=== PATIENT | female | born 1945 | race Caucasian/White ===

== ENCOUNTER 2023-04-20 17:58 | Inpatient (IN) | payer MEDICARE, OTHER ==
[~2023-04-20] VITALS: Ht 160 cm; Wt 68.9 kg
[2023-04-20 18:21] LABS: MEAN CORPUSCULAR HEMOGLOBIN 28.8 uug (24.7-32.8); MEAN CORPUSCULAR VOLUME 87.7 fL (75.5-95.3); PLATELET COUNT (AUTO) 269 K/uL (179-408)
[2023-04-20 18:36] LABS: CARBON DIOXIDE 27 mmol/L (21-32); CHLORIDE 98 mmol/L (98-107); CREATININE 1.2 mg/dL (0.6-1.3); GLUCOSE 152 mg/dL (74-106); POTASSIUM 4.2 mmol/L (3.5-5.1); UREA NITROGEN, BLOOD 19 mg/dL (7-18)
[2023-04-20] MEDS ORDERED: OSCAL PO (18:40)
[2023-04-20] MEDS ORDERED: VITAMIN D3 PO (18:40)
[2023-04-20] MEDS ORDERED: PANT40TA49 PO (18:40)
[2023-04-20] MEDS ORDERED: AMLO-212 PO (18:40)
[2023-04-20] MEDS ORDERED: ESCI10TA PO (18:40)
[2023-04-20] MEDS ORDERED: HYDR-894 PO (18:40)
[2023-04-20] MEDS ORDERED: [UNRECOGNIZED DRUG - OTHER] PR (18:40)
[2023-04-20] MEDS ORDERED: IPRA3AMP23 IH (18:40)
[2023-04-20] MEDS ORDERED: LAMO100T17 PO (18:40)
[2023-04-20] MEDS ORDERED: TRIH2TAB5 PO (18:40)
[2023-04-20] MEDS ORDERED: HALO0.5T6 PO (18:40)
[2023-04-20] MEDS ORDERED: [UNRECOGNIZED DRUG - OTHER] PO (18:40)
[2023-04-20] MEDS ORDERED: GLYC5.6S RC (18:40)
[2023-04-20] MEDS ORDERED: ACET650S13 RC (18:40)
[2023-04-20 18:41] LABS: ALANINE AMINOTRANSFERASE 26 U/L (14-59); ALKALINE PHOSPHATASE 88 U/L (50-136); ASPARTATE AMINOTRANSFERASE 45 U/L (15-37); BILIRUBIN,DIRECT 0.2 mg/dL (0.0-0.2); BILIRUBIN,TOTAL 0.4 mg/dL (0.2-1.0); TOTAL PROTEIN, SERUM 7.1 g/dL (6.4-8.2)
--- NOTE | 2023-04-20 18:46 | NUR ---
Pt seen by for bedside eval. Sent UA to lab. Pt on soft restraints since 1839. Safety measures in place. Will continue to monitor.
[2023-04-20 18:50] LABS: *BILIRUBIN,URIN NEGATIVE (NEGATIVE); *BLOOD, URINE NEGATIVE (NEGATIVE); *CLARITY,URINE CLEAR (CLEAR); *COLOR,URINE YELLOW (YELLOW); *KETONES,URINE NEGATIVE (NEGATIVE); *UROBILINOGEN,URINE 0.2 E.U./dl (NORMAL); LEUKOCYTE ESTERASE ,URINE NEGATIVE (NEGATIVE); NITRITE, URINE NEGATIVE (NEGATIVE); PH,URINE 5.5 (5.0-8.0); UGLUCOSE NEGATIVE (NEGATIVE)
[2023-04-20 18:57] LABS: ACETAMINOPHEN < 10.0 ug/mL (10-30)
--- NOTE | 2023-04-20 19:05 | NUR ---
REPORT RECEIVED FROM AMADA CRUZ.
--- NOTE | 2023-04-20 19:05 | NUR ---
REPORT RECEIVED FROM AMADA CRUZ.
[2023-04-20 19:07] LABS: *AMPHETAMINE, URINE NEGATIVE (NEGATIVE); *CANNABINOID, URINE NEGATIVE (NEGATIVE); *COCCAINE, URINE NEGATIVE (NEGATIVE); *PHENCYCLIDINE SCREEN,URINE NEGATIVE (NEGATIVE)
--- NOTE | 2023-04-20 19:10 | NUR ---
PT IS A,A, AGITATED / CONFUSED. PT KEEPS YELLING OUT IN GABONESE.
[2023-04-20] MEDS ORDERED: ALBUTEROL SULFATE 2.5 MG/ 0.5 ML NEBU ONE (19:26)
[2023-04-20] MEDS ORDERED: IPRATROPIUM BROMIDE 0.5 MG/2.5 ML NEBU ONE (19:26)
--- NOTE | 2023-04-20 19:30 | NUR ---
PT GIVEN JUICE TO DRINK.
--- NOTE | 2023-04-20 19:45 | NUR ---
PT SPEAKING CHANI. SHUKRI VALIDATION SOFTWARE FACILITATOR #[id number], SPOKE WITH PT . VALIDATION SOFTWARE FACILITATOR SAID, PT COULD NOT ANSWER QUESTIONS APROPRIATELY AND THAT SHE THOUGHT SHE WAS AT HOME. PT MEDICALLY CLEARED.RONIT, ON [facility] CONTACTED.
--- NOTE | 2023-04-20 19:53 | NUR ---
Patient medically cleared by DR Crowder. Called Roxane from [facility] who will come eval patient.
--- NOTE | 2023-04-20 20:30 | NUR ---
PINKY AT BEDSIDE FOR PSYCH EVAL.
--- NOTE | 2023-04-20 21:15 | NUR ---
REPORT GIVEN TO WILL RN IN MHU.
[2023-04-20] MEDS ORDERED: OLANZAPINE 5 MG TABLET ONE (21:42)
[2023-04-20] MEDS ORDERED: OLANZAPINE 5 MG TABLET PO SCH (21:45)
--- NOTE | 2023-04-20 22:15 | NUR ---
PT STABLE WITH NAD OBSERVED.Pt. admitted to 139[facility] , under care of Dr. BRITO Belongs List completed. PT TAKEN TO [facility] VIA BRIANNA.
--- NOTE | 2023-04-20 22:30 | NUR ---
Admitted patient from SNF due to increased agitation, confuse, disorganize & disoriented, pacing & running in the hallways, wandering to other patient rooms, talking to self, yelling and screaming, Patient assisted to the toilet, skin clean, except for left leg multiple bruises, and on left inner upper arm. Patient speak Bulgarian, but too confuse to make valuable conversation according to YARN SALVAGER, ER staff uses voice diesel retrofit designer, assisted to bed, easily get agitated when giving care, cont to monitor.
[2023-04-20] MEDS ORDERED: MAG HYDROX/AL HYDROX/SIMETH 30 ML LIQUID UDC PO PRN (23:15)
[2023-04-20] MEDS ORDERED: BLOOD SUGAR DIAGNOSTIC 1 EACH STRIP VI ONE (23:15)
[2023-04-20] MEDS ORDERED: ACETAMINOPHEN 325 MG TABLET PO PRN (23:15)
[2023-04-20] MEDS ORDERED: MAGNESIUM HYDROXIDE 30 ML LIQUID UDC PO PRN (23:15)
--- NOTE | 2023-04-20 23:32 | NUR ---
refused blood sugar check, gets agitated.
[2023-04-20 23:58] VITALS: BP 126/68; TEMP 98.1; O2SAT 95
[2023-04-21 08:00] VITALS: BP 130/41; TEMP 98.2; O2SAT 94
[2023-04-21] MEDS: LAMOTRIGINE 100 MG TABLET PO SCH ×3 (11:18→18:18)
[2023-04-21] MEDS ORDERED: CALC-1026 PO (11:29)
[2023-04-21] MEDS ORDERED: ACETAMINOPHEN 650 MG SUPP.RECT RC PRN (12:30)
[2023-04-21] MEDS: hydrALAZINE HCL 25 MG TABLET PO SCH ×2 (13:05→18:18)
[2023-04-21 16:00] VITALS: BP 131/48; TEMP 97.5; O2SAT 95
[2023-04-21 20:00] VITALS: BP 127/63; TEMP 97.5; O2SAT 94
[2023-04-21] MEDS: OLANZAPINE 5 MG TABLET PO SCH (20:48)
[2023-04-21] MEDS: TRIHEXYPHENIDYL HCL 2 MG TABLET PO SCH (20:49)
--- NOTE | 2023-04-22 06:21 | NUR ---
remain confused and disoriented but cooperative with meds and care. assisted with adl's. kept clean and dry. continue plan of care.
--- NOTE | 2023-04-22 06:21 | NUR ---
slept 7.45 hrs through the night.
[2023-04-22] MEDS: PANTOPRAZOLE SODIUM 40 MG TABLET.DR PO SCH (06:31)
[2023-04-22 07:05] LABS: HEMATOCRIT 38.6 % (31.2-41.9); MEAN CORPUSCULAR HEMOGLOBIN 29.6 uug (24.7-32.8); MEAN CORPUSCULAR VOLUME 88.5 fL (75.5-95.3); PLATELET COUNT (AUTO) 252 K/uL (179-408)
[2023-04-22 07:39] LABS: BILIRUBIN,TOTAL 0.5 mg/dL (0.2-1.0); CREATININE 1.1 mg/dL (0.6-1.3); PHOSPHOROUS 4.3 mg/dL (2.5-4.9); POTASSIUM 4.3 mmol/L (3.5-5.1); TOTAL PROTEIN, SERUM 6.6 g/dL (6.4-8.2)
[2023-04-22] MEDS: AMLODIPINE 5 MG TABLET PO SCH (09:31)
[2023-04-22] MEDS: LAMOTRIGINE 100 MG TABLET PO SCH ×3 (09:31→17:07)
[2023-04-22] MEDS: hydrALAZINE HCL 25 MG TABLET PO SCH ×3 (09:32→17:07)
[2023-04-22] MEDS: CALCIUM CARBONATE 500 MG TABLET PO SCH (09:32)
[2023-04-22] MEDS: CHOLECALCIFEROL 1,000 UNIT TABLET PO SCH (09:33)
--- NOTE | 2023-04-22 11:21 | NUR ---
Nursing- Was taken to am shower , incontinent of loose stools in bed ,, ambulated with min assist, confused, disoriented follows simple commad , safety emphasized
[2023-04-22] MEDS: OLANZAPINE 2.5 MG TABLET PO SCH (13:31)
[2023-04-22 16:19] VITALS: BP 145/52; TEMP 98; O2SAT 96
--- NOTE | 2023-04-22 16:25 | NUR ---
ANANT Initial Discharge Note: Pt currently resides at [facility] [place] [address] [facility] [address] ([phone]). ANANT will continue to located family contact information for the pt to discuss a discharge plan back to [place]. ANANT will continue to work with pt, family and MD to ensure a safe and proper discharge plan.
--- NOTE | 2023-04-22 16:28 | NUR ---
Firearms Report: Disk Recoater completed and submitted a [employer] firearms report for 5150 grave disability certifications. A copy of report has been placed in patient chart.
[2023-04-22] MEDS: GLUCERNA SHAKE 237 ML CAN PO SCH (17:08)
--- NOTE | 2023-04-22 19:30 | NUR ---
Patient frequently getting in and out of the bed. Unsteady gait, requires supervision to minimal assist. Gait becomes unsteady at times. Confused and disoriented, very anxious. Placed on ricardo chair for safety. Continue to monitor.
[2023-04-22] MEDS: LORAZEPAM 0.5 MG TABLET PO PRN (20:28)
[2023-04-22] MEDS: OLANZAPINE 5 MG TABLET PO SCH (20:28)
[2023-04-22] MEDS: TRIHEXYPHENIDYL HCL 2 MG TABLET PO SCH (20:28)
[2023-04-22 20:48] VITALS: BP 126/51; TEMP 98; O2SAT 96
[2023-04-22] MEDS: TEMAZEPAM 7.5 MG CAPSULE PO PRN (21:30)
--- NOTE | 2023-04-23 05:26 | NUR ---
Patient slept 7.0 hours.
[2023-04-23] MEDS: PANTOPRAZOLE SODIUM 40 MG TABLET.DR PO SCH (06:08)
[2023-04-23 08:19] VITALS: BP 139/52; TEMP 97.1; O2SAT 96
[2023-04-23] MEDS: CHOLECALCIFEROL 1,000 UNIT TABLET PO SCH (09:56)
[2023-04-23] MEDS: AMLODIPINE 5 MG TABLET PO SCH (09:56)
[2023-04-23] MEDS: LAMOTRIGINE 100 MG TABLET PO SCH ×3 (09:56→17:26)
[2023-04-23] MEDS: CALCIUM CARBONATE 500 MG TABLET PO SCH (09:56)
[2023-04-23] MEDS: hydrALAZINE HCL 25 MG TABLET PO SCH ×3 (09:57→17:27)
[2023-04-23] MEDS: GLUCERNA SHAKE 237 ML CAN PO SCH ×2 (09:58→17:00)
[2023-04-23] MEDS: PROTEIN SUPPLEMENT (PROSTAT) 30 ML LIQUID PO SCH (09:58)
[2023-04-23] MEDS: OLANZAPINE 2.5 MG TABLET PO SCH (13:55)
--- NOTE | 2023-04-23 15:00 | NUR ---
Gps/Knitting Machine Fixer Head- Stayed in the activity room this pm, noted crying spells , speaks Moroccan , tried to assist with christmas tree farm worker. Routine meds. administered crushed with susannah. pudding preferred. Safety reviewed, was toileted at a regular intervals.
[2023-04-23 17:21] VITALS: BP 125/60; TEMP 97.8; O2SAT 96
[2023-04-23] MEDS: TRIHEXYPHENIDYL HCL 2 MG TABLET PO SCH (21:18)
[2023-04-23] MEDS: OLANZAPINE 5 MG TABLET PO SCH (21:18)
[2023-04-23 21:54] VITALS: BP 139/52; TEMP 98; O2SAT 96
[2023-04-23] MEDS: TEMAZEPAM 7.5 MG CAPSULE PO PRN (22:35)
--- NOTE | 2023-04-24 03:21 | NUR ---
Patient confused and anxious at the start of the shift . Food and fluids offered. Reassurance and reorientation offered and is ongoing, as well as the safety stratiges in place. Continuing to monitor this patient for any behavior escalation and too provided assistance as needed. No acute issues noted so far.
[2023-04-24] MEDS: PANTOPRAZOLE SODIUM 40 MG TABLET.DR PO SCH (06:11)
--- NOTE | 2023-04-24 07:39 | NUR ---
GPS Nursing notes: Patient lying in bed asleep, breathing is even and unlabored, no S/S of distress, fall and safety precautions implemented. Will continue to monitor.
[2023-04-24 08:29] VITALS: BP 132/52; TEMP 98.4; O2SAT 97
[2023-04-24] MEDS: GLUCERNA SHAKE 237 ML CAN PO SCH ×2 (08:41→16:59)
[2023-04-24] MEDS: LAMOTRIGINE 100 MG TABLET PO SCH ×3 (08:41→16:58)
[2023-04-24] MEDS: OLANZAPINE 2.5 MG TABLET PO SCH ×3 (08:42→16:58)
[2023-04-24] MEDS: CHOLECALCIFEROL 1,000 UNIT TABLET PO SCH (08:42)
[2023-04-24] MEDS: CALCIUM CARBONATE 500 MG TABLET PO SCH (08:42)
[2023-04-24] MEDS: hydrALAZINE HCL 25 MG TABLET PO SCH ×3 (08:42→16:58)
[2023-04-24] MEDS: PROTEIN SUPPLEMENT (PROSTAT) 30 ML LIQUID PO SCH (08:43)
[2023-04-24] MEDS: AMLODIPINE 5 MG TABLET PO SCH (08:46)
--- NOTE | 2023-04-24 13:26 | NUR ---
GPS Nursing notes: Patient is cooperative, ambulating with with assistance, speaks little Lebanese, follows directions, patient use bathroom, takes medications, eating meals with assistance. Fall and safety implemented, Emotional support provide.
[2023-04-24 16:31] VITALS: BP 133/50; TEMP 98.1; O2SAT 96
[2023-04-24 20:25] VITALS: BP 141/62; TEMP 98.2; O2SAT 96
[2023-04-24] MEDS: OLANZAPINE 5 MG TABLET PO SCH (20:52)
[2023-04-24] MEDS: TRIHEXYPHENIDYL HCL 2 MG TABLET PO SCH (20:52)
[2023-04-25] MEDS: LORAZEPAM 0.5 MG TABLET PO PRN ×2 (04:41→21:18)
[2023-04-25] MEDS: PANTOPRAZOLE SODIUM 40 MG TABLET.DR PO SCH (04:41)
--- NOTE | 2023-04-25 06:43 | NUR ---
This patient was up and down during the night. Snack and fluids provided with assistance. The patient was responding to internal stimuli and was easily irritated with the staff. This junior copywriter redirected and reassured the patient when needed. The patient is confused and ambulates to the bathroom and in the hallway frequently. Safety Stratiges are in place and ongoing.
[2023-04-25 08:48] VITALS: BP 136/68; TEMP 98.3; O2SAT 97
[2023-04-25] MEDS: LAMOTRIGINE 100 MG TABLET PO SCH ×3 (08:55→16:47)
[2023-04-25] MEDS: OLANZAPINE 2.5 MG TABLET PO SCH ×2 (08:55→16:46)
[2023-04-25] MEDS: CHOLECALCIFEROL 1,000 UNIT TABLET PO SCH (08:55)
[2023-04-25] MEDS: AMLODIPINE 5 MG TABLET PO SCH (08:55)
[2023-04-25] MEDS: CALCIUM CARBONATE 500 MG TABLET PO SCH (08:56)
[2023-04-25] MEDS: GLUCERNA SHAKE 237 ML CAN PO SCH ×2 (08:57→16:48)
[2023-04-25] MEDS: PROTEIN SUPPLEMENT (PROSTAT) 30 ML LIQUID PO SCH (08:57)
[2023-04-25] MEDS: hydrALAZINE HCL 25 MG TABLET PO SCH ×3 (08:59→16:47)
--- NOTE | 2023-04-25 15:43 | NUR ---
Received patient is alert and oriented x 1 to herself, ambulating in the unit ,compliant with all medication .patient with poor insight and poor judgement able to follow direction ,attend in group activity will continue to close monitoring.
[2023-04-25 16:12] VITALS: BP 141/61; TEMP 98; O2SAT 97
[2023-04-25] MEDS: TRIHEXYPHENIDYL HCL 2 MG TABLET PO SCH (21:18)
[2023-04-25] MEDS: OLANZAPINE 5 MG TABLET PO SCH (21:18)
[2023-04-25 22:27] VITALS: BP 125/69; TEMP 98.2; O2SAT 98
[2023-04-26] MEDS: TEMAZEPAM 7.5 MG CAPSULE PO PRN (00:08)
--- NOTE | 2023-04-26 02:59 | NUR ---
This patient is up and down frequently during the night , responding to internal stimuli . The patient has labile moods but is not showing any physical aggression towards staff at this time. Redirection and reassurance provided as needed. Safety Stratiges are in place. A shower was given tonight.Continuing with the plan of care.
[2023-04-26] MEDS: PANTOPRAZOLE SODIUM 40 MG TABLET.DR PO SCH (06:13)
[2023-04-26 08:20] VITALS: BP 115/96; TEMP 98.3; O2SAT 97
[2023-04-26] MEDS: CALCIUM CARBONATE 500 MG TABLET PO SCH (09:04)
[2023-04-26] MEDS: AMLODIPINE 5 MG TABLET PO SCH (09:04)
[2023-04-26] MEDS: CHOLECALCIFEROL 1,000 UNIT TABLET PO SCH (09:05)
[2023-04-26] MEDS: hydrALAZINE HCL 25 MG TABLET PO SCH ×3 (09:05→17:41)
[2023-04-26] MEDS: OLANZAPINE 2.5 MG TABLET PO SCH ×3 (09:05→17:41)
[2023-04-26] MEDS: LAMOTRIGINE 100 MG TABLET PO SCH ×3 (09:05→17:41)
[2023-04-26] MEDS: PROTEIN SUPPLEMENT (PROSTAT) 30 ML LIQUID PO SCH (09:06)
[2023-04-26] MEDS: GLUCERNA SHAKE 237 ML CAN PO SCH ×2 (09:06→17:42)
[2023-04-26] MEDS: MEMANTINE HCL 5 MG TABLET PO SCH ×2 (11:34→21:28)
--- NOTE | 2023-04-26 14:48 | NUR ---
GPS: Nursing Notes: Thought Disorder: Patient is awake and responding to her name, isolative and withdrawn in her room at times, disoriented, disorganized, confused, poor insight, impaired judgment, poor impulse control, responding to internal stimuli by mumbling to unseen others, redirected and reoriented during shift, unable to formulate a viable plan for self care, episode of flashing to male staff, gets easily anxious when redirected, loud and anxious speech, continue to monitor for safety, continue with treatment plan.
[2023-04-26 16:48] VITALS: BP 109/55; TEMP 98.1; O2SAT 97
[2023-04-26 19:52] VITALS: BP 116/51; TEMP 98.2; O2SAT 96
[2023-04-26] MEDS: OLANZAPINE 5 MG TABLET PO SCH (21:28)
[2023-04-26] MEDS: TRIHEXYPHENIDYL HCL 2 MG TABLET PO SCH (21:28)
[2023-04-26] MEDS: LORAZEPAM 0.5 MG TABLET PO PRN (23:12)
[2023-04-27] MEDS: PANTOPRAZOLE SODIUM 40 MG TABLET.DR PO SCH (06:28)
[2023-04-27 08:39] VITALS: BP 139/56; TEMP 98.2; O2SAT 99
[2023-04-27] MEDS: OLANZAPINE 2.5 MG TABLET PO SCH ×3 (08:42→17:07)
[2023-04-27] MEDS: MEMANTINE HCL 5 MG TABLET PO SCH ×2 (08:43→20:13)
[2023-04-27] MEDS: LAMOTRIGINE 100 MG TABLET PO SCH ×3 (08:43→17:07)
[2023-04-27] MEDS: AMLODIPINE 5 MG TABLET PO SCH (08:43)
[2023-04-27] MEDS: CHOLECALCIFEROL 1,000 UNIT TABLET PO SCH (08:44)
[2023-04-27] MEDS: CALCIUM CARBONATE 500 MG TABLET PO SCH (08:44)
[2023-04-27] MEDS: hydrALAZINE HCL 25 MG TABLET PO SCH ×3 (08:44→17:08)
[2023-04-27] MEDS: PROTEIN SUPPLEMENT (PROSTAT) 30 ML LIQUID PO SCH (08:45)
[2023-04-27] MEDS: GLUCERNA SHAKE 237 ML CAN PO SCH ×2 (08:45→17:09)
--- NOTE | 2023-04-27 09:18 | NUR ---
ANANT Discharge Update: ANANT contacted Niurka at [facility] located at [address] [facility] [address] ([phone]) and left a voicemail for a call back to discuss pt's discharge plan.
[2023-04-27] MEDS: LORAZEPAM 0.5 MG TABLET PO PRN ×2 (12:21→20:13)
--- NOTE | 2023-04-27 12:27 | NUR ---
GPS 5250 Hearing: Patient had 5250 probable cause hearing today and it was upheld for Grave disability.
[2023-04-27 15:07] VITALS: BP 121/48; TEMP 98.2; O2SAT 99
[2023-04-27 20:04] VITALS: BP 132/51; TEMP 98.2; O2SAT 98
[2023-04-27] MEDS: TRIHEXYPHENIDYL HCL 2 MG TABLET PO SCH (20:12)
[2023-04-27] MEDS: OLANZAPINE 5 MG TABLET PO SCH (20:13)
--- NOTE | 2023-04-27 20:45 | NUR ---
Patient wonders in the hallway and back to her room. Confused and disoriented with some anxiety and restlessness noted. Patient pleasantly anxious. Able to redirect patient. No SI noted.
[2023-04-28] MEDS: PANTOPRAZOLE SODIUM 40 MG TABLET.DR PO SCH (06:14)
--- NOTE | 2023-04-28 06:16 | NUR ---
Patient slept 2.0 hours.
[2023-04-28] MEDS: PROTEIN SUPPLEMENT (PROSTAT) 30 ML LIQUID PO SCH (08:00)
[2023-04-28] MEDS: GLUCERNA SHAKE 237 ML CAN PO SCH ×2 (08:00→17:35)
[2023-04-28 08:02] VITALS: BP 142/62; TEMP 98; O2SAT 98
[2023-04-28] MEDS: CHOLECALCIFEROL 1,000 UNIT TABLET PO SCH (10:10)
[2023-04-28] MEDS: LAMOTRIGINE 100 MG TABLET PO SCH ×3 (10:10→17:34)
[2023-04-28] MEDS: OLANZAPINE 2.5 MG TABLET PO SCH ×3 (10:11→17:34)
[2023-04-28] MEDS: hydrALAZINE HCL 25 MG TABLET PO SCH ×3 (10:11→17:34)
[2023-04-28] MEDS: AMLODIPINE 5 MG TABLET PO SCH (10:12)
[2023-04-28] MEDS: CALCIUM CARBONATE 500 MG TABLET PO SCH (10:13)
[2023-04-28] MEDS: MEMANTINE HCL 5 MG TABLET PO SCH ×2 (10:15→20:24)
[2023-04-28 15:27] VITALS: BP 136/75; TEMP 98.2; O2SAT 98
[2023-04-28 20:13] VITALS: BP 134/71; TEMP 98.1; O2SAT 96
[2023-04-28] MEDS: OLANZAPINE 5 MG TABLET PO SCH (20:23)
[2023-04-28] MEDS: TRIHEXYPHENIDYL HCL 2 MG TABLET PO SCH (20:24)
[2023-04-29] MEDS: PANTOPRAZOLE SODIUM 40 MG TABLET.DR PO SCH (06:10)
[2023-04-29 07:30] VITALS: BP 124/62; TEMP 98.4; O2SAT 98
[2023-04-29] MEDS: LAMOTRIGINE 100 MG TABLET PO SCH ×3 (09:46→17:09)
[2023-04-29] MEDS: MEMANTINE HCL 5 MG TABLET PO SCH ×2 (09:46→20:56)
[2023-04-29] MEDS: OLANZAPINE 2.5 MG TABLET PO SCH ×3 (09:46→17:09)
[2023-04-29] MEDS: AMLODIPINE 5 MG TABLET PO SCH (09:47)
[2023-04-29] MEDS: CHOLECALCIFEROL 1,000 UNIT TABLET PO SCH (09:47)
[2023-04-29] MEDS: CALCIUM CARBONATE 500 MG TABLET PO SCH (09:48)
[2023-04-29] MEDS: hydrALAZINE HCL 25 MG TABLET PO SCH ×3 (09:48→17:11)
[2023-04-29] MEDS: GLUCERNA SHAKE 237 ML CAN PO SCH ×2 (09:49→17:11)
[2023-04-29] MEDS: PROTEIN SUPPLEMENT (PROSTAT) 30 ML LIQUID PO SCH (09:49)
--- NOTE | 2023-04-29 11:47 | NUR ---
ANANT Discharge Update: ANANT contacted Niurka at [facility] located at [address] [facility] [address] ([phone]) and left a voicemail for a call back to discuss pt's discharge plan.
[2023-04-29 15:49] VITALS: BP 136/76; TEMP 98.2; O2SAT 98
--- NOTE | 2023-04-29 16:01 | NUR ---
Nursing- Compliant with her routine medications .Routine meds. administered crushed with chocolate pudding. Ambulates around, needing to be redirected Showered by RAILROAD PASSENGER AGENT w/ min.assist
[2023-04-29 20:11] VITALS: BP 136/63; TEMP 98.4; O2SAT 98
[2023-04-29] MEDS: OLANZAPINE 5 MG TABLET PO SCH (20:56)
[2023-04-29] MEDS: TRIHEXYPHENIDYL HCL 2 MG TABLET PO SCH (20:56)
[2023-04-30] MEDS: PANTOPRAZOLE SODIUM 40 MG TABLET.DR PO SCH (07:14)
[2023-04-30] MEDS: LAMOTRIGINE 100 MG TABLET PO SCH ×3 (09:28→17:24)
[2023-04-30] MEDS: OLANZAPINE 2.5 MG TABLET PO SCH ×2 (09:30→12:23)
[2023-04-30] MEDS: CALCIUM CARBONATE 500 MG TABLET PO SCH (09:30)
--- NOTE | 2023-04-30 09:30 | NUR ---
ANANT Discharge Update: ANANT contacted Niurka at [facility] located at [address] [facility] [address] ([phone]) and left a voicemail for a call back to discuss pt's discharge plan.
[2023-04-30] MEDS: hydrALAZINE HCL 25 MG TABLET PO SCH ×3 (09:45→17:25)
[2023-04-30] MEDS: AMLODIPINE 5 MG TABLET PO SCH (09:46)
[2023-04-30] MEDS: CHOLECALCIFEROL 1,000 UNIT TABLET PO SCH (09:47)
[2023-04-30] MEDS: GLUCERNA SHAKE 237 ML CAN PO SCH ×2 (09:49→17:26)
[2023-04-30] MEDS: PROTEIN SUPPLEMENT (PROSTAT) 30 ML LIQUID PO SCH (09:50)
[2023-04-30] MEDS: MEMANTINE HCL 5 MG TABLET PO SCH ×2 (09:51→20:59)
[2023-04-30] MEDS: LORAZEPAM 0.5 MG TABLET PO PRN ×2 (12:31→20:59)
[2023-04-30] MEDS: OLANZAPINE ZYDIS 5 MG TAB.RAPDIS PO SCH (17:25)
[2023-04-30 20:00] VITALS: TEMP 98.7
[2023-04-30] MEDS ORDERED: OLANZAPINE ZYDIS 5 MG TAB.RAPDIS PO SCH (21:00)
[2023-04-30] MEDS: TRIHEXYPHENIDYL HCL 2 MG TABLET PO SCH (21:13)
[2023-05-01] MEDS: TEMAZEPAM 7.5 MG CAPSULE PO PRN (00:47)
--- NOTE | 2023-05-01 05:03 | NUR ---
Patient has been irritable and angry for no apparent reason. Pacing in the hallway at times, withdrawn other times. Labile moods. Poor sleep hours tonight. Responding loudly to internal stimuli . Safety Stratiges remain in place. Continuing to monitor for behavior escalation and compliance.
[2023-05-01] MEDS: PANTOPRAZOLE SODIUM 40 MG TABLET.DR PO SCH (06:28)
[2023-05-01] MEDS: LAMOTRIGINE 100 MG TABLET PO SCH ×3 (08:43→16:57)
[2023-05-01] MEDS: hydrALAZINE HCL 25 MG TABLET PO SCH ×3 (08:44→16:57)
[2023-05-01] MEDS: OLANZAPINE ZYDIS 5 MG TAB.RAPDIS PO SCH ×2 (08:45→16:56)
[2023-05-01] MEDS: CHOLECALCIFEROL 1,000 UNIT TABLET PO SCH (08:45)
[2023-05-01] MEDS: CALCIUM CARBONATE 500 MG TABLET PO SCH (08:47)
[2023-05-01] MEDS: AMLODIPINE 5 MG TABLET PO SCH (08:48)
[2023-05-01] MEDS: MEMANTINE HCL 5 MG TABLET PO SCH ×2 (08:48→20:42)
[2023-05-01] MEDS: GLUCERNA SHAKE 237 ML CAN PO SCH ×2 (08:49→17:00)
[2023-05-01] MEDS: PROTEIN SUPPLEMENT (PROSTAT) 30 ML LIQUID PO SCH (08:49)
[2023-05-01 08:54] LABS: HEMATOCRIT 39.5 % (31.2-41.9); MEAN CORPUSCULAR HEMOGLOBIN 29.5 uug (24.7-32.8); MEAN CORPUSCULAR VOLUME 90.4 fL (75.5-95.3); PLATELET COUNT (AUTO) 254 K/uL (179-408)
[2023-05-01 09:30] VITALS: BP 137/74; TEMP 98.1; O2SAT 96
[2023-05-01 09:30] LABS: BILIRUBIN,TOTAL 0.5 mg/dL (0.2-1.0); CREATININE 1.1 mg/dL (0.6-1.3); TOTAL PROTEIN, SERUM 7.4 g/dL (6.4-8.2)
[2023-05-01] MEDS: LORAZEPAM 0.5 MG TABLET PO PRN ×2 (13:43→20:42)
[2023-05-01 16:00] VITALS: BP 137/53; TEMP 98; O2SAT 96
[2023-05-01 20:16] VITALS: BP 120/54; TEMP 98; O2SAT 96
[2023-05-01] MEDS: TRIHEXYPHENIDYL HCL 2 MG TABLET PO SCH (20:42)
[2023-05-01] MEDS ORDERED: OLANZAPINE ZYDIS 5 MG TAB.RAPDIS PO SCH (21:00)
--- NOTE | 2023-05-02 | NUR ---
The patient is restless, confused and agitated tonight. Coming in and out of her room and yelling at other patients and at the staff. This patient is more difficult to redirect this evening and is resistant to all care that has been offered. Paranoid and responding continuously to internal stimuli, very loudly at times. The medications do not appear effective at this time. Safety Stratiges are in place and on going. Continuing to provide redirection and reassurance as needed and too monitor for further anxiety, paranoia or behavior escalation.
[2023-05-02] MEDS: LORAZEPAM 0.5 MG TABLET PO PRN ×2 (03:06→12:23)
[2023-05-02 08:11] VITALS: BP 137/92; TEMP 98.3; O2SAT 97
[2023-05-02] MEDS: PANTOPRAZOLE SODIUM 40 MG TABLET.DR PO SCH (08:20)
[2023-05-02] MEDS: OLANZAPINE ZYDIS 5 MG TAB.RAPDIS PO SCH ×2 (08:20→17:27)
[2023-05-02] MEDS: CHOLECALCIFEROL 1,000 UNIT TABLET PO SCH (08:20)
[2023-05-02] MEDS: MEMANTINE HCL 5 MG TABLET PO SCH ×2 (08:21→20:39)
[2023-05-02] MEDS: LAMOTRIGINE 100 MG TABLET PO SCH ×3 (08:21→17:25)
[2023-05-02] MEDS: AMLODIPINE 5 MG TABLET PO SCH (08:21)
[2023-05-02] MEDS: CALCIUM CARBONATE 500 MG TABLET PO SCH (08:22)
[2023-05-02] MEDS: hydrALAZINE HCL 25 MG TABLET PO SCH ×3 (08:22→17:26)
[2023-05-02] MEDS: PROTEIN SUPPLEMENT (PROSTAT) 30 ML LIQUID PO SCH (08:23)
[2023-05-02] MEDS: GLUCERNA SHAKE 237 ML CAN PO SCH ×2 (08:23→17:27)
--- NOTE | 2023-05-02 15:17 | NUR ---
Received patient anxious speaks Wolof, prompted to take routine am Meds. patient has been pacing to other peers room requested re-direction at all time. Ativan given as needed for agitation Behavior .
[2023-05-02 16:43] VITALS: BP 132/51; TEMP 98.1; O2SAT 96
[2023-05-02] MEDS: risperiDONE-M 0.5 MG TAB.RAPDIS PO SCH (17:25)
[2023-05-02 20:13] VITALS: BP 148/76; TEMP 98.2; O2SAT 96
[2023-05-02] MEDS: TRIHEXYPHENIDYL HCL 2 MG TABLET PO SCH (20:39)
[2023-05-02] MEDS ORDERED: risperiDONE-M 0.5 MG TAB.RAPDIS PO SCH (21:00)
[2023-05-03] MEDS: PANTOPRAZOLE SODIUM 40 MG TABLET.DR PO SCH (07:34)
[2023-05-03 08:00] VITALS: BP 159/57; TEMP 98; O2SAT 96
[2023-05-03] MEDS: MEMANTINE HCL 5 MG TABLET PO SCH ×2 (09:04→20:23)
[2023-05-03] MEDS: LAMOTRIGINE 100 MG TABLET PO SCH ×3 (09:04→17:13)
[2023-05-03] MEDS: CHOLECALCIFEROL 1,000 UNIT TABLET PO SCH (09:05)
[2023-05-03] MEDS: hydrALAZINE HCL 25 MG TABLET PO SCH ×3 (09:12→17:14)
[2023-05-03] MEDS: AMLODIPINE 5 MG TABLET PO SCH (09:13)
[2023-05-03] MEDS: CALCIUM CARBONATE 500 MG TABLET PO SCH (09:14)
[2023-05-03] MEDS: risperiDONE-M 0.5 MG TAB.RAPDIS PO SCH ×3 (09:14→20:23)
[2023-05-03] MEDS: GLUCERNA SHAKE 237 ML CAN PO SCH ×2 (09:15→17:15)
[2023-05-03] MEDS: PROTEIN SUPPLEMENT (PROSTAT) 30 ML LIQUID PO SCH (09:16)
--- NOTE | 2023-05-03 10:32 | NUR ---
ANANT Discharge Update: ANANT contacted Niurka at [facility] located at [address] [facility] [address] ([phone]) and discussed pt's return upon discharge. Pt is accepted to return for continuation of care upon discharge.
[2023-05-03 16:48] VITALS: BP 132/49; TEMP 98; O2SAT 96
[2023-05-03 19:53] VITALS: BP 148/52; TEMP 98.2; O2SAT 96
[2023-05-03] MEDS: TRIHEXYPHENIDYL HCL 2 MG TABLET PO SCH (20:23)
--- NOTE | 2023-05-04 00:58 | NUR ---
Successful urine sample collection via toilet seat hat-catcher. Transferred urine into urine specimen container and brought to our lab @ 0055 hours. Urine was somewhat cloudy in appearance, dark yellow to rocio in color, and foul smelling. Will notify change of shift (AM shift) nurse.
[2023-05-04 01:01] LABS: *BILIRUBIN,URIN NEGATIVE (NEGATIVE); *BLOOD, URINE NEGATIVE (NEGATIVE); *COLOR,URINE YELLOW (YELLOW); *KETONES,URINE TRACE (NEGATIVE); *UROBILINOGEN,URINE 0.2 E.U./dl (NORMAL); LEUKOCYTE ESTERASE ,URINE 1+ (NEGATIVE); NITRITE, URINE NEGATIVE (NEGATIVE); PH,URINE 5.5 (5.0-8.0); UGLUCOSE NEGATIVE (NEGATIVE)
[2023-05-04 01:06] LABS: *CLARITY,URINE HAZY (CLEAR)
[2023-05-04 03:18] LABS: BACTERIA,URINE FEW /HPF (NONE SEEN); WBC,URINE 20-50 /HPF (0-3)
[2023-05-04 03:19] LABS: SQUAMOUS EPITHELIAL CELL,UR FEW /HPF (NONE SEEN)
[2023-05-04] MEDS: PANTOPRAZOLE SODIUM 40 MG TABLET.DR PO SCH (06:50)
[2023-05-04 07:45] VITALS: BP 141/71; TEMP 98.2; O2SAT 98
[2023-05-04] MEDS: GLUCERNA SHAKE 237 ML CAN PO SCH ×3 (08:26→09:06)
[2023-05-04] MEDS: PROTEIN SUPPLEMENT (PROSTAT) 30 ML LIQUID PO SCH (08:26)
[2023-05-04] MEDS: LAMOTRIGINE 100 MG TABLET PO SCH ×3 (08:55→17:28)
[2023-05-04] MEDS: AMLODIPINE 5 MG TABLET PO SCH (09:01)
[2023-05-04] MEDS: MEMANTINE HCL 5 MG TABLET PO SCH ×2 (09:02→21:45)
[2023-05-04] MEDS: risperiDONE-M 0.5 MG TAB.RAPDIS PO SCH ×3 (09:02→21:43)
[2023-05-04] MEDS: hydrALAZINE HCL 25 MG TABLET PO SCH ×3 (09:03→17:28)
[2023-05-04] MEDS: CHOLECALCIFEROL 1,000 UNIT TABLET PO SCH (09:03)
[2023-05-04] MEDS: CALCIUM CARBONATE 500 MG TABLET PO SCH (09:04)
[2023-05-04] MEDS: CEphaleXIN 500 MG CAPSULE PO SCH ×2 (09:04→17:29)
[2023-05-04 15:10] VITALS: BP 114/81; TEMP 98.2; O2SAT 98
[2023-05-04 20:10] VITALS: BP 128/78; TEMP 98; O2SAT 96
[2023-05-04] MEDS: TRIHEXYPHENIDYL HCL 2 MG TABLET PO SCH (21:45)
[2023-05-05] MEDS: PANTOPRAZOLE SODIUM 40 MG TABLET.DR PO SCH (07:11)
[2023-05-05 07:56] VITALS: BP 133/59; TEMP 98.2; O2SAT 99
[2023-05-05] MEDS: PROTEIN SUPPLEMENT (PROSTAT) 30 ML LIQUID PO SCH (08:00)
[2023-05-05] MEDS: LAMOTRIGINE 100 MG TABLET PO SCH ×3 (08:50→17:32)
[2023-05-05] MEDS: MEMANTINE HCL 5 MG TABLET PO SCH ×2 (08:50→20:16)
[2023-05-05] MEDS: AMLODIPINE 5 MG TABLET PO SCH (08:52)
[2023-05-05] MEDS: risperiDONE-M 0.5 MG TAB.RAPDIS PO SCH ×3 (08:52→20:16)
[2023-05-05] MEDS: CHOLECALCIFEROL 1,000 UNIT TABLET PO SCH (08:52)
[2023-05-05] MEDS: hydrALAZINE HCL 25 MG TABLET PO SCH ×3 (08:54→17:32)
[2023-05-05] MEDS: CALCIUM CARBONATE 500 MG TABLET PO SCH (08:55)
[2023-05-05] MEDS: GLUCERNA SHAKE 237 ML CAN PO SCH (09:00)
[2023-05-05] MEDS: CEphaleXIN 500 MG CAPSULE PO SCH ×2 (09:01→17:32)
[2023-05-05 15:50] VITALS: BP 141/62; TEMP 98; O2SAT 99
--- NOTE | 2023-05-05 17:52 | NUR ---
Pt is anxious, restless, depressed and unkept appearance. Pt paces in her room talking to her self and when she lays in bed pt stars crying. Encourage pt to ventilate feelings and to participate in group activities. Pt kept her self in room al of this shift. Pt is compliant with medications and compliant with care. Reassurance and emotional support provided. Safety measures in place , continue to monitor for safety.
[2023-05-05 20:00] VITALS: BP 118/56; TEMP 98.4; O2SAT 94
[2023-05-05] MEDS: TRIHEXYPHENIDYL HCL 2 MG TABLET PO SCH (20:16)
[2023-05-06] MEDS: PANTOPRAZOLE SODIUM 40 MG TABLET.DR PO SCH (06:12)
[2023-05-06] MEDS: CEphaleXIN 500 MG CAPSULE PO SCH (09:21)
[2023-05-06] MEDS: MEMANTINE HCL 5 MG TABLET PO SCH (09:21)
[2023-05-06] MEDS: hydrALAZINE HCL 25 MG TABLET PO SCH ×2 (09:22→13:07)
[2023-05-06] MEDS: CHOLECALCIFEROL 1,000 UNIT TABLET PO SCH (09:22)
[2023-05-06] MEDS: AMLODIPINE 5 MG TABLET PO SCH (09:23)
[2023-05-06] MEDS: LAMOTRIGINE 100 MG TABLET PO SCH ×2 (09:24→13:07)
[2023-05-06] MEDS: risperiDONE-M 0.5 MG TAB.RAPDIS PO SCH (09:24)
[2023-05-06] MEDS: CALCIUM CARBONATE 500 MG TABLET PO SCH (09:27)
[2023-05-06] MEDS: PROTEIN SUPPLEMENT (PROSTAT) 30 ML LIQUID PO SCH (09:28)
[2023-05-06] MEDS: GLUCERNA SHAKE 237 ML CAN PO SCH (09:33)
[2023-05-06 09:57] VITALS: BP 122/66; TEMP 98.4; O2SAT 99
--- NOTE | 2023-05-06 13:00 | NUR ---
Nursing report was vlad Camejo, Senior Energy Trader. patient assigned to bed # 118 . Patient has no other valuables noted, only clothes. Patient smiling , cooperative in good spirt . When informed and redirected to the rney , patient expressed feelings of being scared. Depilatory Painter came to assist staff, translates for patient, reassured patient in [facility].
[2023-05-06 13:07] VITALS: BP 116/62
--- NOTE | 2023-05-06 13:15 | NUR ---
Nursing Discharged patient via [facility], calmer mood. .
[2023-05-06] MEDS: LORAZEPAM 0.5 MG TABLET PO PRN (13:35)
== END 2023-05-06 13:30 | DRG 885 ==
LOC: ER 17:58 → GPS 21:25
PROVIDERS: ADMIT Psychiatry & Neurology Psychosomatic Medicine; ATTEND Nurse Practitioner Acute Care
DX: F20.9 Schizophrenia, unspecified (principal); F01.53 Vascular dementia, unspecified severity, with mood disturbance; G93.41 Metabolic encephalopathy; N39.0 Urinary tract infection, site not specified; F01.52 Vascular dementia, unspecified severity, with psychotic disturbance; G20 Parkinson's disease; E78.5 Hyperlipidemia, unspecified; K21.9 Gastro-esophageal reflux disease without esophagitis; I25.10 Atherosclerotic heart disease of native coronary artery without angina pectoris; M81.0 Age-related osteoporosis without current pathological fracture; B96.89 Other specified bacterial agents as the cause of diseases classified elsewhere; I10 Essential (primary) hypertension; Z79.899 Other long term (current) drug therapy; Z20.822 Contact with and (suspected) exposure to COVID-19; F29 Unspecified psychosis not due to a substance or known physiological condition; D72.829 Elevated white blood cell count, unspecified; Z73.6 Limitation of activities due to disability; R73.03 Prediabetes; M15.9 Polyosteoarthritis, unspecified
CPT/HCPCS: 36415; 71045; 83735; 84100; 85025; A4663; C1758; G0480; J3590